=== PATIENT | female | born 1940 | race Caucasian/White ===

== ENCOUNTER 2024-05-21 16:41 | Emergency (ER) | payer OTHER, SELFPAY ==
[2024-05-21 16:42] VITALS: BP 101/74
[2024-05-21 17:07] LABS: % Basophils 0.3 % (0-2); % Eosinophils 0.3 % (0-6); % Immature Granulocytes 0.2 % (0-0.5); % Lymphocytes 8.6 % (20.5-51.1); % Neutrophils 82.6 % (42.2-75.2); Absolute Lymphocytes 0.9 10^3/uL (1.2-3.4); Absolute Monocytes 0.8 10^3/uL (0.1-0.6); Absolute Neutrophils 8.3 10^3/uL (1.4-6.5); Hematocrit 39.4 % (37.0-47.0); Hemoglobin 13.2 g/dL (12.0-16.0); Mean Corp Hgb Conc. 33.5 g/dL (33.0-37.0); Mean Corpuscular Hgb 29.7 pg (27.0-31.0); Mean Corpuscular Volume 88.7 fL (81.0-99.0); Mean Platelet Volume 11.5 fL (7.4-10.4); Nucleated Red Blood Cells % 0 %; Platelet Count 134 10^3/uL (130-400); Red Blood Cell Count 4.44 10^6/uL (4.20-5.40); Red Cell Dist. Width 14.4 % (11.5-14.5)
[2024-05-21 17:12] LABS: INR 1.03; PT 13.8 Sec (11.4-14.6)
[2024-05-21 17:13] LABS: APTT 36.2 Sec (23.4-35.0)
[2024-05-21 17:16] LABS: ALT (SGPT) 20 U/L (0-35); AST (SGOT) 28 U/L (14-36); Albumin 3.9 g/dl (3.5-5.0); Alkaline Phosphatase 121 U/L (38-126); Blood Urea Nitrogen 19 mg/dl (7-17); Calcium 9.8 mg/dl (8.4-10.2); Carbon Dioxide 25 mmol/L (22-30); Chloride 110 mmol/L (98-107); Glucose 121 mg/dl (70-99); Potassium 4.2 mmol/L (3.5-5.1); Sodium 143 mmol/L (135-145); Total Bilirubin 0.7 mg/dl (0.2-1.3); Total Protein 6.5 g/dl (6.3-8.2); eGFR 55.21
--- NOTE | 2024-05-21 19:30 | ED.GENMED ---
History of Present Illness
General
Chief Complaint: Abdominal Symptoms
Time Seen by Provider: 05/21/24 19:26
History of Present Illness
History of Present Illness:
TIME OF INITIAL ENCOUNTER: 7:30 PM
HPI: Approximately 24 hours ago, the patient started having vomiting and diarrhea. This is associated with some degree of abdominal discomfort. states that she was 'up all night and did not sleep at all due to the runs'. She had some
intermittent vomiting that was described as coffee-ground type of emesis. She has been having rectal prolapse issues but has never been seen by a colorectal surgeon. She also has chronic anal incontinence.
EXAM:
GENERAL: Appears somewhat weak, mild hypotension
HEENT: Moist oral mucosa
CARDIOVASCULAR: No murmurs, normal heart rate, regular rhythm, No chest wall tenderness
PULMONARY: No respiratory distress, breath sounds are clear and equal
ABDOMEN: Soft with no peritoneal signs, mild diffuse abdominal tenderness more so in the upper abdomen
NEUROLOGIC: Excellent strength all extremities, no coordination deficits mild tremor noted
PSYCHIATRIC: Appropriate mental status, normal insight and judgement
EXTREMITIES: Nontender, no edema, moves all extremities equally
SKIN: No rash, no lesions
NUMBER AND COMPLEXITY OF PROBLEMS ADDRESSED AT THE ENCOUNTER
� Chronic conditions affecting care: Hyperlipidemia, GERD, hiatal hernia, anemia, bipolar disorder
� Acute Exacerbation and/or Progression of Chronic Illness: This is an acute problem
� Differential Diagnosis includes: Viral gastroenteritis, foodborne illness
AMOUNT AND/OR COMPLEXITY OF DATA TO BE REVIEWED AND ANALYZED
� I performed an independent evaluation of and my interpretation is:
EKG:
CT: CT shows large hiatal hernia with uncomplicated diverticulitis of the sigmoid colon
X-rays:
Laboratory Studies: White count is 10.0, hemoglobin 13.2 BUN is minimally elevated, creatinine normal
Other:
� Review of other/old records: No old records available for review
� Clinical information was obtained by an independent historian: I spoke to , son-in-law, and daughter at bedside
� Prescriptions/Medications Considered but not given:
� Further testing considered but not performed:
RISK OF COMPLICATIONS AND/OR MORBIDITY OR MORTALITY OF PATIENT MANAGEMENT
� Social determinants of health affecting care: Lives at home
� Discussion with other providers:
� Escalation of care including admission/observation vs risk of discharge considered: The patient overall feels improved after IV fluids were given in the emerged been. She did develop a headache. Overall she feels comfortable
to going home. Labs are normal. She may have been a little bit dehydrated. CT shows large hiatal hernia and she is already on Prilosec for this. I gave a prescription for Augmentin as CT does suggest diverticulitis however her overall
presentation is not consistent with diverticulitis. She will only start Augmentin if symptoms of diverticulitis start such as left lower quadrant pain and resolution of diarrhea.
ANY OTHER UPDATES:
Phy Exam
Physical Exam
Physical Exam:
See HPI
Course
Orders/Labs/Results
Orders:
Orders
05/21/24 16:53
Type And Crossmatch [Type+Screen] Urgent
Complete Blood Count/With Diff Urgent
Comprehensive Metabolic Panel Urgent
PTT Urgent
Prothrombin Time Urgent
05/21/24 19:32
0.9% Sodium Chloride 1000 ml [Nss] 1,000 ml IV BOLUS
05/21/24 19:42
Famotidine [Pepcid] 20 mg IV NOW STA
Ondansetron Injectable [Zofran] 4 mg IV NOW STA
05/21/24 19:43
CT Abd/pelvis W Iv Cont Urgent
Comment:
Reason For Exam: abd pain diffuse; V/D, hernia
05/21/24 19:54
ABO2 Urgent
BBK Wristband Number:
Associate notified that ABO2 has been ordered: [id number]
Date: 05/21/24
Time: 17:25
Head Of Commission Department ID: [id number]
Abnormal Lab Results
05/21/24
16:53
MPV 11.5 H fL
(7.4-10.4)
Absolute Neuts (auto) 8.3 H 10^3/uL
(1.4-6.5)
Absolute Lymphs (auto) 0.9 L 10^3/uL
(1.2-3.4)
Absolute Monos (auto) 0.8 H 10^3/uL
(0.1-0.6)
Neutrophils % 82.6 H %
(42.2-75.2)
Lymphocytes % 8.6 L %
(20.5-51.1)
APTT 36.2 H Sec
(23.4-35.0)
Chloride 110 H mmol/L
(98-107)
BUN 19 H mg/dl
(7-17)
Glucose 121 H mg/dl
(70-99)
05/21/24 16:53
05/21/24 16:53
Vital Signs
Initial and Last Documented VS:
Initial Vital Signs
Temp Pulse Resp BP Pulse Ox
36.8 C 91 20 101/74 97
05/21/24 16:42 05/21/24 16:42 05/21/24 16:42 05/21/24 16:42 05/21/24 16:42
Last Documented Vital Signs
Temp Pulse Resp BP Pulse Ox
37.6 C 93 18 138/73 98
05/21/24 20:04 05/21/24 22:30 05/21/24 22:30 05/21/24 22:00 05/21/24 22:30
*Critical Care Note
Total Time (30-74mins, 75-104mins- exclusive of procedures): Not Applicable
ED Attending Note
-
Portions of this chart may have been created with voice recognition software.� Occasional wrong word or��sound alike� substitutions may have occurred due to the inherent limitations of voice recognition software.
Discharge Plan
Departure
Patient Disposition: Home (Routine Discharge)
Date of Disposition: 05/21/24
Time of Disposition: 22:49
Patient with high blood pressure during this ER visit?: Yes
Discharge Problem:
Diarrhea
Instructions: Diarrhea in teens and adults, Dehydration, Adult (DC), Abdominal Pain
Prescriptions:
New
ondansetron HCl 4 mg tablet
4 mg PO Q8H PRN (Reason: nausea and vomiting) Qty: 10 0RF
amoxicillin-pot clavulanate 875-125 mg tablet
1 tab PO BID Qty: 14 0RF
Referrals:
Syeda Carrera MD [Family Provider] -
Activity Restrictions/Additional Instructions:
. I am sending a prescription for nausea medicine, Zofran, electronically to your pharmacy. The white blood cell count is normal. Other basic labs are unremarkable. The CAT scan shows the large hiatal hernia�I recommend that you continue
Prilosec. The CAT scan also suggests diverticulitis however given the fact that you have mostly diarrhea along with no significant left lower quadrant pain, I recommend against antibiotics at this time. However I am giving you a paper prescription
for Augmentin only to be started if your diarrhea is improving and if you develop pain in the left lower part of your abdomen.
Interventions
Interventions:
*Risk Screen - Suicide Last Done: 05/21/24 16:42
*General Assessment Last Done: 05/21/24 16:42
*Neglect/Abuse Screening Last Done: 05/21/24 20:05
*ED- Fall Risk Assessment Last Done: 05/21/24 20:05
*ED COVID-19 Vaccine History Last Done: 05/21/24 20:05
DK-Lqhlyg-Kaxafaievc Assessment Last Done: 05/21/24 20:05
Discharge Date and Time
Print Language: CUBAN
--- NOTE | 2024-05-21 19:40 | EDRN ---
MD Ilya Mandujano @ bedside.
[2024-05-21] MEDS: NSS 1000 IV (19:57)
[2024-05-21] MEDS: PEPCID 20 MG IV (19:58)
[2024-05-21] MEDS: ZOFRAN 4 MG IV (19:58)
[2024-05-21 20:02] VITALS: BP 146/59
[2024-05-21 20:04] VITALS: BP 146/59
[2024-05-21 20:08] VITALS: BMI 31.1
[2024-05-21 21:00] VITALS: BP 143/71
[2024-05-21 22:00] VITALS: BP 138/73
== END 2024-05-21 23:12 | disposition home or self-care (01) ==
LOC: EMR 16:41
PROVIDERS: Emergency Medicine; EMERGENCY PHYSICIAN Emergency Medicine; FAMILY PHYSICIAN Family Medicine
DX: R19.7 Diarrhea, unspecified (principal); R03.0 Elevated blood-pressure reading, without diagnosis of hypertension; E78.5 Hyperlipidemia, unspecified; K21.9 Gastro-esophageal reflux disease without esophagitis; D64.9 Anemia, unspecified; F31.9 Bipolar disorder, unspecified
CPT/HCPCS: 99285; 96374; 96375; 96361; 74177; 80053; 85025; 85610; 85730; 86850; 86900; 86901; Q9967